=== PATIENT | female | born 1955 | race Caucasian/White ===

== ENCOUNTER 2024-04-19 06:56 | Outpatient (OUT) | payer MEDICARE, OTHER, SELFPAY ==
--- NOTE | 2024-04-19 | PCN_ITS ---
CARDIAC STRESS TEST Requesting Physician: Marcello Taylor M.D. Procedure Date: 04/19/2024 PERFORMING PROVIDER: Maris Marroquin NP INDICATION: Preoperative risk stratification, abnormal EKG. STRESS TEST PROTOCOL: Lexiscan myocardial perfusion scan. Resting heart rate: 76 Max heart rate: 85 Resting blood pressure: 114/56 Maximum blood pressure: 118/58 ST changes: No significant ST changes meeting the criteria for ischemia post Lexiscan infusion. Symptoms: None. Arrhythmias: PVCs. CONCLUSION: 1. Resting EKG demonstrated sinus rhythm with sinus arrhythmias with first degree AV block, septal infarct, age indeterminate. 2. No definite EKG changes meeting the criteria for ischemia were noted after Lexiscan infusion. 3. Please refer to separately interpreted and reported nuclear perfusion imaging report. [facility]
--- NOTE | 2024-04-19 07:00 | CA_ITS ---
Patient Name: BULMARO LUTZ MR#: [id number] : 1955 Exam Date: 04/19/2024 Ordering Doctor: SHELLI TIM M.D. ECHOCARDIOGRAM REPORT PROCEDURE: CA ECHO DOPPLER COMPLETE INDICATIONS: Aortic valve stenosis, hypertension, diabetes, kidney transplant COMPARISON: None. DESCRIPTION: COMPLETE ECHOCARDIOGRAM Real-time transthoracic echocardiography with 2D, M-mode, spectral and color flow Doppler performed. QUALITY: Technical quality was good. LEFT VENTRICLE: Normal chamber size. Moderate concentric left ventricular hypertrophy. Normal systolic function. LV EF: Normal left ventricular ejection fraction, (>55%). DIASTOLIC: Grade 2 diastolic dysfunction. ATRIAL SEPTUM: Visually appears intact. LEFT ATRIUM: Severe dilatation. RIGHT ATRIUM: Moderate dilatation. RIGHT VENTRICLE: Normal chamber size. Normal right ventricular systolic function. TRICUSPID VALVE: Normal mobility and thickness. No stenosis with trivial regurgitation. Doppler studies reveal moderately (45-60) elevated right sided pressures. RVSP 48 mmHg MITRAL VALVE: Moderately thickened with decreased mobility. Mild mitral valve stenosis. Mild mitral annular calcification. Mild mitral regurgitation. AORTIC VALVE: Normal trileaflet appearance. Severely calcified aortic valve. Severely diminished mobility. Doppler velocity suggest severe aortic valve stenosis. DVI 0.3, LEVI 0.87 cm?. Mean gradient 25 mmHg. No aortic regurgitation. AORTIC ROOT: Normal diameter and appearance. Ascending aorta is normal in size. PULMONIC VALVE: Normal thickness and mobility. No stenosis. No regurgitation. PERICARDIUM: No evidence of pericardial effusion. IVC: IVC is normal in size, does not fully collapse. PLEURA: CONCLUSION: 1. Moderate concentric left ventricular hypertrophy with normal systolic function. 2. Normal right ventricular size and systolic function. 3. Grade 2 diastolic dysfunction. 4. There appears to be severe aortic valve stenosis. 5. Mild mitral regurgitation. 6. Moderately elevated right-sided pressures. RVSP is 48 mmHg. 7. A transesophageal echocardiogram is recommended for better assessment of the aortic valve. Adult Echocardiography Procedure Report Left Ventricle LVEDD (3.7 - 5.6 cm): 4.70 cm LVESD (2.2 - 4.0 cm): 3.14 cm LVIVS thickness (0.6 - 1.2 cm): 1.27 cm LVPW thickness (0.5 - 1.0 cm): 1.28 cm E - e': 20.51 LVOT Max Gradient: 3.96 mm[Hg] LVOT Area (cm2): 0.99 m/s Peak Velocity (LVOT): 0.99 m/s Mean Velocity (LVOT): 0.68 m/s LVOT Diameter 1.95 cm Left Atrium LA Volume Index (2D A2C): 50.87 ml/m2 Left Atrium Systolic Dimension: 5.68 cm Mitral Valve MV E to A Ratio: 1.12, 1.11 Right Ventricle Aorta AO Root Diam: 3.48 cm Ascending Ao Diam: 2.93 cm Aortic Valve AoV Area (Peak Winston): 1.09 cm2, 1.35 cm2 AoV Area (VTI): 1.35 cm2, 1.72 cm2 Peak Velocity(Antegrade Flow): 2.76 m/s, 3.41 m/s, 3.28 m/s Peak Gradient(Antegrade Flow): 30.39 mm[Hg], 46.60 mm[Hg], 43.15 mm[Hg] Mean Velocity(Antegrade Flow): 1.97 m/s, 2.29 m/s, 2.46 m/s Mean Gradient(Antegrade Flow): 17.22 mm[Hg], 24.47 mm[Hg], 26.85 mm[Hg] Velocity Time Integral: 67.40 cm, 81.97 cm, 86.17 cm Tricuspid Valve Peak Velocity (Regurgitant Flow): 2.56 m/s, 2.61 m/s, 3.17 m/s Pulmonic Valve Mean Gradient: 3.25 mm[Hg] Mean Velocity: 0.84 m/s Peak Velocity: 1.24 m/s, 1.06 m/s Peak Gradient: 6.18 mm[Hg], 4.46 mm[Hg] Right Atrium Right Atrium Systolic Pressure: 61.73 ml, 61.73 ml Dictated by: Garret Pruitt M.D. on 04/19/2024 at 16:18 Approved by: Garret Pruitt M.D. on 04/19/2024 at 16:26
--- NOTE | 2024-04-19 07:50 | NM_ITS ---
Patient Name: BULMARO LUTZ MR#: [id number] : 1955 Exam Date: 04/19/2024 Ordering Doctor: SHELLI TIM M.D. RADIOLOGY REPORT PROCEDURE: NM BOOM PERF SPECT REST STR COMPARISON: None. INDICATIONS: PRE PROCEDURE CARDIOVASCULAR EXAM, ABNORMAL EKG TECHNIQUE: Exam Description: Stress/Rest one day protocol gated SPECT Rest Imagin.5 mCi Tc-99m Cardiolite IV on 04/19/2024 Stress Imaging 31.8 mCi Tc-99m Cardiolite IV on 04/19/2024 Exercise Protocol: 0.4 mg Lexiscan given IV Heart Rate (bpm): Rest: 76 Max: 85 PMHR: 55 Blood Pressure: Rest: 114/56 Max: 118/58 Symptoms: Rest and peak stress ECG findings were pending and the exercise portion of the study was pending per attending physician Dr. STARK . For more details please see separate cardiac stress test report. FINDINGS: QUALITY OF STUDY: Good. PERFUSION DEFECT: LOCATION: Basal inferior. Mid-inferior. SIZE: Small (1-2 segments). SEVERITY: Mild. TYPE: Persistent. WALL MOTION: Normal. LV SIZE: Normal. 115 mL. TID / TCD: None; 1.0 LVEF: Normal. Calculated EF 59%. SUMMARY: Myocardial perfusion imaging study has ABNORMAL findings. CONCLUSION: 1. Small area of mildly increased uptake in the anterior wall on stress imaging, stable on rest imaging. This could represent breast attenuation motion artifact 2. No reversible ischemia 3. Pending exercise test results Dictated by: Roc Tatum MD on 04/20/2024 at 10:49 Approved by: Roc Tatum MD on 04/20/2024 at 10:50
[2024-04-19] MEDS: REGADENOSON 0.4 MG/5 ML SYRINGE IV (09:52)
--- NOTE | 2024-04-19 10:17 | PC.NURSE ---
Nursing Note Cardiac Stress Test Reviewed: Medication, allergies and patient history reviewed. Stress Test: [ x] Patient tolerated stress test well. [ ] Patient unable to tolerate walking on treadmill. Switched to Lexiscan stress test. [x ] No chest pain noted per patient [ ] Chest pain that resolved prior to leaving stress lab. [x ] No dyspnea noted. [ ] Dyspnea that resolved prior to leaving stress lab. [ x] Patient left stress lab asymptomatic and hemodynamically stable. [ ] Patient taken to the Emergency Room due to non-resolving symptoms following stress test. [ ] Patient achieved target heart rate. [ ] Patient unable to achieve target heart rate. [ ] Aminophylline administered as reversal agent to Lexiscan (Regadenoson). [ ] Nitro administered. Nursing Comments: Pt tolerated stress test well. No issues noted.
== END 2024-04-19 06:57 | disposition home or self-care (01) ==
LOC: CARD 06:57
PROVIDERS: PCP Nurse Practitioner Women's Health; Visit Provider Internal Medicine Cardiovascular Disease
DX: I35.0 Nonrheumatic aortic (valve) stenosis (principal); Z01.810 Encounter for preprocedural cardiovascular examination
CPT/HCPCS: 78452; 93017; 93306; A9500; J2785

== ENCOUNTER 2024-10-13 13:47 | Outpatient (OUT) | payer MEDICARE, OTHER, SELFPAY ==
--- NOTE | 2024-10-13 14:00 | CA_ITS ---
Patient Name: BULMARO LUTZ MR#: [id number] : 1955 Exam Date: 10/13/2024 Ordering Doctor: DR HALLEY PRUITT M.D. ECHOCARDIOGRAM REPORT PROCEDURE: CA ECHO LIMITED INDICATIONS: Nonrheumatic aortic valve stenosis - s/p TAVR COMPARISON: None. DESCRIPTION: Limited ECHOCARDIOGRAM Real-time transthoracic echocardiography with 2D and M-mode performed. QUALITY: Technical quality was good. Limited echocardiogram per physician order. LEFT VENTRICLE: Normal chamber size. Mild concentric left ventricular hypertrophy. Normal systolic function. LV EF: Normal left ventricular ejection fraction, (70%). DIASTOLIC: ATRIAL SEPTUM: LEFT ATRIUM: Severe dilatation. RIGHT ATRIUM: Moderate dilatation. RIGHT VENTRICLE: Normal chamber size. Normal systolic function. TRICUSPID VALVE: Normal mobility and thickness. MITRAL VALVE: Moderately thickened with decreased mobility. Mild mitral annular calcification. AORTIC VALVE: TAVR appears well seated in the aortic position. AORTIC ROOT: Normal diameter and appearance. PULMONIC VALVE: Normal thickness and mobility. PERICARDIUM: No evidence of pericardial effusion. IVC: IVC is dilated (2.2 cm) with no collapse. PLEURA: CONCLUSION: 1. Normal ventricular systolic function. LVEF is estimated at 70%. 2. Moderate to severe biatrial dilatation. 3. TAVR prosthesis is well-seated in aortic position. No Doppler interrogation was performed. 4. No pericardial effusion. 5. Limited study performed with no Doppler interrogation. Adult Echocardiography Procedure Report Left Ventricle LVEDD (3.7 - 5.6 cm): 5.19 cm LVESD (2.2 - 4.0 cm): 3.83 cm LVIVS thickness (0.6 - 1.2 cm): 1.31 cm LVPW thickness (0.5 - 1.0 cm): 1.15 cm LVOT Diameter 1.85 cm Left Atrium LA Volume Index (2D A2C): 58.49 ml/m2 Left Atrium Systolic Dimension: 5.29 cm Mitral Valve Right Ventricle Aorta AO Root Diam: 3.93 cm Aortic Valve Tricuspid Valve Pulmonic Valve Right Atrium Right Atrium Systolic Pressure: 57.67 ml, 57.67 ml Dictated by: Halley Pruitt M.D. on 10/13/2024 at 16:09 Approved by: Halley Pruitt M.D. on 10/13/2024 at 16:11
== END 2024-10-13 13:48 | disposition home or self-care (01) ==
PROVIDERS: PCP Nurse Practitioner Women's Health; Visit Provider Internal Medicine Interventional Cardiology
DX: I35.0 Nonrheumatic aortic (valve) stenosis (principal)
CPT/HCPCS: 93308